=== PATIENT | female | born 1995 | race American Indian/Alaskan Native ===

== ENCOUNTER 2022-06-13 13:09 | Emergency (ER) | payer SELFPAY ==
[2022-06-13] MEDS ORDERED: FLUORESCEIN 1 MG STRIP OP ONE ×2 (15:11→19:56)
[2022-06-13] MEDS ORDERED: TETRACAINE 0.5% OPHTH SOLN 4ML OU PRN (15:11)
--- NOTE | 2022-06-13 15:11 | Event Note ---
ED Screening Note ED Screening Note: 26-year-old female glasses wearing presents to the emergency department with right eye pain x2 days. Patient reports she accidentally used her glasses to injure herself has been having severe pain in the right eye since, pain is worse when she opens. General: Nontoxic appearing no acute distress Cardiac: Regular rate, normal heart sounds Respiratory: Normal lung sounds bilaterally no use of joint finisher muscles GI/-normal sounds, nontender no guarding Musculoskeletal-normal inspection full range of motion Neuro-alert oriented x4. In the setting of a significantly high volume and record number of patients presenting to the emergency department and the fact that we have a limited space to see patients we have implemented the provider in triage protocol this allows an expedited initial exam of patients that might otherwise have left without being seen or who would wait longer than usual to be seen by provider. I interviewed the patient and performed a limited physical exam. This patient is a pulled from the waiting room to triage room for an initial assessment of adrenal studies and then returned to the waiting room pending results of the studies. The ultimate final evaluation and disposition may be performed by another provider depending on room and provider availability.
--- NOTE | 2022-06-13 19:59 | Emergency Department Report ---
Eye Injury/Foreign Body - HPI Duration: Today Eye Location: Right Severity: Moderate Tetanus Status: Up to Date Eye Symptoms: Eye Pain: Yes, Blurred Vision: Yes, Eye Redness: Yes, Grinding/Hammering Metal: No, Used Eye Protection: No, Contact Lens Use: No, Recalls Injury: Yes, Photophobia: Yes Other History: This is a 26-year-old female with no past medical history presents the ED complaining of right eye., Blurry vision and swelling that began today prior to arrival to the ED. Patient states that she accidentally hit her glasses against her eyes and thin the corner of her eyeglasses poked her eye. Patient denies any foreign body feeling in the eye. Patient denies any other injuries or loss of vision. Patient states tetanus is up-to-date ED Review of Systems ROS: Stated complaint: RT EYE PAIN/CANT OPEN Other details as noted in HPI Comment: All other systems reviewed and negative ED Past Medical Hx - Social History Smoking Status: Current Every Day Smoker Substance Use Type: Alcohol, Marijuana - Medications Home Medications: Home Medications Medication Instructions Recorded Confirmed Last Taken Type Ketorolac Tromethamine [Acular 1 - 2 ml OP TID #10 ml 06/13/22 Unknown Rx 0.5% Opth Soln] Ofloxacin 0.3% [Ocuflox 0.3% opth] 2 drops OP Q6H #1 bottle 06/13/22 Unknown Rx Eye Injury Exam - Exam General: Vital signs noted. No distress. Alert and acting appropriately. - Visual Acuity Right Vision Acuity Degree: 20/40 Eye Exam: Right Injection, Right Fluorescein Uptake (Corneal abrasion at the center of the cornea.), Right Photophobia Exam: Mildly tender to palpation. No loss of vision. Alert PERRLA bilaterally. Vision is intact bilaterally. ED Course Vital Signs 06/13/22 15:23 Temperature 98.6 F Pulse Rate 72 Respiratory 18 Rate Blood Pressure 101/80 [Right] O2 Sat by Pulse 100 Oximetry ED Medical Decision Making - Medical Decision Making 26-year-old female presents with right eye corneal abrasion ED course: sandoval lamp test shows positive corneal abrasion. discussed this with the patient. 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 I discussed the patient is new or worsening symptoms to return to ED immediately Patient's vital signs are stable she's in no distress. Discussed eyepatch use on the right eye with patient. Patient is vision is intact, visual acuity test performed, within normal limits given corneal abrasion. Patient reports feeling much better after eye was flushed and eye exam completed. Patient not able to open eye Discussed the patient to follow up with her primary care physician in 3-5 days. Critical care attestation.: If time is entered above; I have spent that time in minutes in the direct care of this critically ill patient, excluding procedure time. ED Disposition Clinical Impression: Corneal abrasion, right Disposition: HOME / SELF CARE / HOMELESS Is pt being admited?: No Does the pt Need Aspirin: No Condition: Stable Instructions: Corneal Abrasion, [id number] Additional Instructions: Make sure to follow up with the primary care physician as discussed. Get eyepatch from [employer] and wear on right eye for photophobia. Take all your medications as you've been prescribed. If you have any worsening symptoms or develop new symptoms please return to ED immediately. Prescriptions: Ketorolac Tromethamine [Acular 0.5% Opth Soln] 1 - 2 ml OP TID #10 ml Ofloxacin 0.3% [Ocuflox 0.3% opth] 2 drops OP Q6H #1 bottle Referrals: [facility] [Provider Group] - 3-5 Days Forms: Accompanied Note, Work/School Release Form(ED) Time of Disposition: 20:14
[2022-06-13 22:17] VITALS: BP 123/89
== END 2022-06-13 22:17 | disposition home or self-care (01) ==
LOC: ED 13:09
DX: S00.211A Abrasion of right eyelid and periocular area, initial encounter (principal); W22.8XXA Striking against or struck by other objects, initial encounter; Y93.89 Activity, other specified; Y92.89 Other specified places as the place of occurrence of the external cause; Y99.8 Other external cause status
CPT/HCPCS: 99282; 99283